=== PATIENT | female | born 1930 | race Caucasian/White ===

== ENCOUNTER 2016-08-17 14:47 | Inpatient (IN) | payer MEDICARE ==
--- NOTE | 2016-08-17 15:14 | EDM.PDOC ---
ED HPI GENERAL MEDICAL PROBLEM - General Time Seen by Provider: 08/17/16 15:09 Source of Information: Reports: Family History Limitations: Reports: Altered mental status - History of Present Illness INITIAL COMMENTS - FREE TEXT/NARRATIVE: c/o "gurgling" family came to visit and pt was leaning back in chair with coarse respirations, not talking, po 50% on arrival here but quickly came up to 95% after suction, had 30-50 of thick white secretions aspiration c/w aspiration, lungs were much more clear, some froth present dtr-in-law in room, pt from [place], nonambulatory, normally conversant still not speaking after suctioning - Related Data Allergies Allergy/AdvReac Type Severity Reaction Status Date / Time Penicillins Allergy Other Verified 04/26/16 06:27 Home Meds: Home Meds Acetaminophen [Tylenol] 650 mg PO BID 04/26/16 [History] Aspirin [Ecotrin] 325 mg PO DAILY 04/26/16 [History] Azelastine HCl 2 spray NASBOTH BID 04/26/16 [History] Calcium Carbonate/Vitamin D3 [Calcium 600 + Vit D 400 Softgl] 1 tab BID [History] Carbidopa/Levodopa [Sinemet 25-100 mg Tablet] 2 each PO QID 04/26/16 [History] Carboxymethylcellulose Sodium [Refresh Tears 0.5% Ophth Soln] 1 drop EYEBOTH QID 04/26/16 [History] Cholestyramine/Sucrose [Cholestyramine] 4 gm 1100 04/26/16 [History] Donepezil HCl [Aricept] 10 mg PO DAILY 04/26/16 [History] Furosemide [Lasix] 40 mg PO BID 04/26/16 [History] Gabapentin [Neurontin] 300 mg PO BID 04/26/16 [History] Insulin Lispro Prot/Lispro [HumaLOG Mix 75-25] 5 unit SQ BID 04/26/16 [History] Lisinopril [Prinivil] 5 mg PO DAILY 04/26/16 [History] Memantine HCl [Namenda Xr] 28 mg PO DAILY 04/26/16 [History] Mirtazapine [Remeron] 15 mg PO BEDTIME 04/26/16 [History] Multivitamin [Multi-Vitamin Daily] 1 tab DAILY 04/26/16 [History] Pantoprazole [Protonix] 40 mg PO DAILY 04/26/16 [History] Potassium Chloride 20 meq PO DAILY 04/26/16 [History] Raloxifene [Evista] 60 mg PO DAILY 04/26/16 [History] Ranitidine HCl [Zantac] 300 mg PO BEDTIME 04/26/16 [History] cefTRIAXone [Rocephin] 1 gm IM DAILY 04/26/16 [History] rOPINIRole HCl [Requip] 1 mg PO TID 04/26/16 [History] traMADol HCl [Tramadol HCl] 50 mg TID 04/26/16 [History] Past Medical History Cardiovascular History: Reports: Arrhythmia, Cardiomyopathy, Heart Failure, Hypertension Gastrointestinal History: Reports: Chronic constipation, GERD Genitourinary History: Reports: Urinary incontinence Musculoskeletal History: Reports: Arthritis Neurological History: Reports: Parkinson's Psychiatric History: Reports: Dementia Endocrine/Metabolic History: Reports: Diabetes, type II - Past Surgical History GI Surgical History: Reports: Hernia, abdominal, Hernia repair/other Social & Family History - Family History Family Medical History: Noncontributory - Tobacco Use Smoking Status *Q: Never Smoker Second Hand Smoke Exposure: No - Caffeine Use Caffeine Use: Reports: Coffee - Recreational Drug Use Recreational Drug Use: No ED ROS GENERAL - Review of Systems Review Of Systems: See Below Constitutional: Reports: no symptoms HEENT: Reports: No symptoms Respiratory: Reports: shortness of breath, sputum Cardiovascular: Reports: No symptoms Endocrine: Reports: no symptoms GI/Abdominal: Reports: No symptoms : Reports: no symptoms Musculoskeletal: Reports: no symptoms Skin: Reports: no symptoms Neurological: Reports: no symptoms Psychiatric: Reports: No symptoms Hematologic/Lymphatic: Reports: no symptoms Immunologic: Reports: no symptoms ED EXAM, GENERAL - Physical Exam Exam: See Below Exam Limited By: Altered mental status General Appearance: WD/WN, moderate distress, other Eye Exam: bilateral eye: other (conjugate) Ears: normal external exam Nose: normal inspection Throat/Mouth: Normal inspection, Normal lips, Normal gums, Normal oropharynx, No airway compromise Head: atraumatic, normocephalic Neck: normal inspection, supple, non-tender, full range of motion Respiratory/Chest: other (scattered rhonchi after suctioning, still tachypnea, weak, not speaking, slight diaphroesis, no retractions, using neck muscles) Cardiovascular: regular rate, rhythm, no edema, no gallop, no rub, other (2/6 [id number] at [facility], quiet precordium) GI/Abdominal: soft, non tender, other (obese) Back Exam: normal inspection, full range of motion Extremities: other (2+ edema to knees, trace edema to groins, nl to inc'd turgor UEs) Skin Exam: Warm, Dry, Intact Lymphatic: no adenopathy Course - Vital Signs Last Recorded V/S: Last Vital Signs Temp 36.3 C 08/17/16 14:50 Pulse 120 H 08/17/16 14:50 Resp 24 H 08/17/16 14:50 BP 138/67 08/17/16 14:50 Pulse Ox 70 L 08/17/16 14:50 - Orders/Labs/Meds Orders: Active Orders 24 hr Category Date Time Status Leal Catheter Insertion [Insert Urinary Catheter] [OM. Care 08/17/16 15:30 Ordered PC] Q24H Urinary Catheter Assessment [RC] QSHIFT Care 08/17/16 15:18 Active Chest 1V Frontal [CR] Stat Exams 08/17/16 15:03 Taken CULTURE BLOOD [BC] Urgent Lab 08/17/16 15:10 Received CULTURE BLOOD [BC] Urgent Lab 08/17/16 15:20 Received Clindamycin Phosphate [Cleocin] 600 mg Med 08/17/16 16:00 Active Sodium Chloride 0.9% [Normal Saline] 50 ml IV Q8H Blood Culture x2 Reflex Set [OM.PC] Urgent Oth 08/17/16 15:08 Ordered EKG 12 Lead [EK] Routine Ther 08/17/16 15:07 Ordered Medication Orders Clindamycin Phosphate 600 mg/ (Sodium Chloride) 54 mls @ 150 mls/hr IV Q8H LIA Labs: Laboratory Tests 08/17/16 08/17/16 08/17/16 Range/Units 15:10 15:10 15:20 WBC 11.1 (4.5-12.0) X10-3/uL RBC 4.16 (3.23-5.20) x10(6)uL Hgb 13.0 (11.5-15.5) g/dL Hct 40.4 (30.0-51.3) % MCV 97.1 H (80-96) fL MCH 31.1 (27.7-33.6) pg MCHC 32.1 L (32.2-35.4) g/dL RDW 13.3 (11.5-15.5) % Plt Count 187 (125-369) X10(3)uL MPV 9.2 (7.4-10.4) fL Add Manual Diff Yes Neutrophils % (Manual) 85 H (46-82) % Lymphocytes % (Manual) 10 L (13-37) % Monocytes % (Manual) 5 (4-12) % Sodium 137 (135-145) mmol/L Potassium 4.8 (3.5-5.3) mmol/L Chloride 101 (100-110) mmol/L Carbon Dioxide 29 (23-29) mmol/L BUN 20 (8-23) mg/dL Creatinine 1.0 (0.6-1.3) mg/dL Est Cr Clr Drug Dosing TNP Estimated GFR (MDRD) 52 L (>60) BUN/Creatinine Ratio 20.0 (9-20) Glucose 237 H D (80-116) mg/dL Calcium 9.0 (8.6-10.2) mg/dL Total Bilirubin 0.4 (0.1-1.3) mg/dL AST 21 D (5-27) IU/L ALT 6 L D (14-26) IU/L Alkaline Phosphatase 73 (56-112) IU/L Troponin I 0.02 (0.02-0.06) NG/ML C-Reactive Protein < 0.5 (0.0-1.0) mg/dL B-Natriuretic Peptide (0-100) pg/mL Total Protein 7.6 (6.0-8.0) g/dL Albumin 3.6 (3.2-4.6) g/dL Globulin 4.0 g/dL Albumin/Globulin Ratio 0.9 03/05/17 Range/Units 15:20 WBC (4.5-12.0) X10-3/uL RBC (3.23-5.20) x10(6)uL Hgb (11.5-15.5) g/dL Hct (30.0-51.3) % MCV (80-96) fL MCH (27.7-33.6) pg MCHC (32.2-35.4) g/dL RDW (11.5-15.5) % Plt Count (125-369) X10(3)uL MPV (7.4-10.4) fL Add Manual Diff Neutrophils % (Manual) (46-82) % Lymphocytes % (Manual) (13-37) % Monocytes % (Manual) (4-12) % Sodium (135-145) mmol/L Potassium (3.5-5.3) mmol/L Chloride (100-110) mmol/L Carbon Dioxide (23-29) mmol/L BUN (8-23) mg/dL Creatinine (0.6-1.3) mg/dL Est Cr Clr Drug Dosing Estimated GFR (MDRD) (>60) BUN/Creatinine Ratio (9-20) Glucose (80-116) mg/dL Calcium (8.6-10.2) mg/dL Total Bilirubin (0.1-1.3) mg/dL AST (5-27) IU/L ALT (14-26) IU/L Alkaline Phosphatase (56-112) IU/L Troponin I (0.02-0.06) NG/ML C-Reactive Protein (0.0-1.0) mg/dL B-Natriuretic Peptide 362 H (0-100) pg/mL Total Protein (6.0-8.0) g/dL Albumin (3.2-4.6) g/dL Globulin g/dL Albumin/Globulin Ratio Meds: Medications Generic Name Dose Route Start Last Admin Trade Name Freq PRN Reason Stop Dose Admin Clindamycin Phosphate 600 mg/ 54 mls @ 150 mls/hr 08/17/16 16:00 Sodium Chloride IV Q8H LIA Discontinued Medications Generic Name Dose Route Start Last Admin Trade Name Freq PRN Reason Stop Dose Admin Furosemide 40 mg 08/17/16 15:18 Lasix IVPUSH 08/17/16 15:19 NOW ONE - Re-Assessments/Exams Free Text/Narrative Re-Assessment/Exam: 08/17/16 17:08 d/w Dr Hodgson who accepted pt in admission Departure - Departure Time of Disposition: 17:08 Disposition: DC/Tfer to Acute Hospital 02 Condition: fair Clinical Impression: Aspiration pneumonia - My Orders Last 24 Hours: My Active Orders 08/17/16 15:03 Chest 1V Frontal [CR] Stat 08/17/16 15:07 EKG 12 Lead [EK] Routine 08/17/16 15:08 Blood Culture x2 Reflex Set [OM.PC] Urgent 08/17/16 15:10 CULTURE BLOOD [BC] Urgent 08/17/16 15:18 Urinary Catheter Assessment [RC] QSHIFT 08/17/16 15:20 CULTURE BLOOD [BC] Urgent 08/17/16 15:30 Leal Catheter Insertion [Insert Urinary Catheter] [OM.PC] Q24H 08/17/16 16:00 Clindamycin Phosphate [Cleocin] 600 mg Sodium Chloride 0.9% [Normal Saline] 50 ml IV Q8H - Assessment/Plan Last 24 Hours: My Active Orders 08/17/16 15:03 Chest 1V Frontal [CR] Stat 08/17/16 15:07 EKG 12 Lead [EK] Routine 08/17/16 15:08 Blood Culture x2 Reflex Set [OM.PC] Urgent 08/17/16 15:10 CULTURE BLOOD [BC] Urgent 08/17/16 15:18 Urinary Catheter Assessment [RC] QSHIFT 08/17/16 15:20 CULTURE BLOOD [BC] Urgent 08/17/16 15:30 Leal Catheter Insertion [Insert Urinary Catheter] [OM.PC] Q24H 08/17/16 16:00 Clindamycin Phosphate [Cleocin] 600 mg Sodium Chloride 0.9% [Normal Saline] 50 ml IV Q8H
[2016-08-17] MEDS ORDERED: Furosemide 40 MG/4 ML VIAL IVPUSH ONE (15:18)
[2016-08-17] MEDS ORDERED: Albuterol/Ipratropium 3.0-0.5 MG/3 ML Neb Soln NEB PRN (17:32)
[2016-08-17] MEDS ORDERED: Sodium Chloride 0.9% 10 ML Syringe FLUSH PRN (17:32)
[2016-08-17] MEDS ORDERED: Furosemide 40 MG/4 ML VIAL ONE (17:33)
[2016-08-17] MEDS: NS + KCl 20mEq/L 1,000 ML IV SCH (18:52)
[2016-08-17] MEDS ORDERED: cefTRIAXone 1 GM in Sodium Chloride 0.9% 50 ML IV SCH (19:00)
[2016-08-17] MEDS ORDERED: Enoxaparin 40 MG/0.4 ML Syringe SUBCUT SCH (19:30)
[2016-08-17] MEDS: metroNIDAZOLE/Normal Saline 500 MG in Premix Bag 1 BAG IV SCH (19:36)
[2016-08-17] MEDS ORDERED: traMADol 50 MG Tab PO SCH (21:00)
[2016-08-17] MEDS ORDERED: Acetaminophen 325 MG Tab PO SCH (21:00)
[2016-08-17] MEDS ORDERED: rOPINIRole 1 MG Tab PO SCH (21:00)
[2016-08-17] MEDS: Mirtazapine 15 MG Tab PO SCH (21:06)
[2016-08-17] MEDS: Gabapentin 300 MG Cap PO SCH (21:06)
[2016-08-17] MEDS: Albuterol/Ipratropium 3.0-0.5 MG/3 ML Neb Soln NEB SCH (21:07)
[2016-08-17] MEDS: Carbidopa/Levodopa 25-100 MG Tab PO SCH (21:35)
[2016-08-17] MEDS: Carboxymethylcellulose Sodium 0.5% Ophth Soln 15 ML Bottle EYEBOTH SCH (21:47)
--- NOTE | 2016-08-18 00:18 | HP ---
ADMISSION DATE: 08/17/2016 CHIEF COMPLAINT: Increasing shortness of breath with unresponsiveness and recent aspiration. HISTORY OF PRESENT ILLNESS: This patient is an 86-year-old, long-term resident of [facility] with a previous history of Parkinson's disease and progressive dementia, type 2 diabetes mellitus, arteriosclerotic heart disease with CHF, and peripheral neuropathy, who was admitted after being seen in the emergency room with the above chief complaint. According to the residential, her dementia has been slowly progressing as is her Parkinson disease. She is becoming more and more rigid, is no longer able to transfer without help and is no longer able to walk. According to her family, she was quite good this morning. She was awake, alert, visiting some with them. When they returned at noon after she had eaten, they found her lying back with her head tilted back and gurgling respirations. She was unresponsive. She was brought to the emergency room where she was evaluated. She initially was quite hypoxic but they suctioned a fair amount of foamy blood tinged particulate matter out of her lungs and trachea and with that, she began coming around, however, she continued to have gurgling respirations and elevated white count was identified. Chest x- ray showed no acute infiltrates, but this just recently happened. Blood cultures were obtained and she was started on IV clindamycin. They felt that hospitalization for short-term would be prudent. The patient at this time denies any pain and is able to answer yes and no questions. She denies any significant shortness of breath but has a loose congested cough. She has had no nausea or vomiting. Denies any recent melena, hematochezia, hematemesis, hemoptysis, or hematuria. 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 CURRENT MEDICATIONS: Extensive and include Sinemet 20/100 two tablets q.i.d., ropinirole 1 mg t.i.d., Aricept 10 mg daily, Namenda in the extended release form 28 mg daily, Protonix 40 mg daily, lisinopril 5 mg daily, furosemide 40 mg b.i.d., potassium chloride 20 mEq daily, Evista 60 mg daily, Astelin nasal spray one whiff in each nostril b.i.d., calcium carbonate with vitamin D 600/400 one tablet daily. She takes cholestyramine 4 g daily, Humalog 75/25, 5 units subcu b.i.d., multivitamin daily. She is also on tramadol 50 mg t.i.d., gabapentin 300 mg b.i.d., aspirin 325 mg daily, and acetaminophen 650 mg p.o. b.i.d. She uses Refresh eye drops in both eyes q.i.d. ALLERGIES: Penicillins. HABITS: She does not smoke nor use alcohol. PAST MEDICAL HISTORY: Pertinent that she has had long-standing Parkinson disease, type 2 diabetes mellitus, and the progressive dementia. She has known osteoporosis and osteoarthritis. She has had a previous hysterectomy, tonsillectomy, and previous ventriculoperitoneal shunt for hydrocephalus a number of years ago. FAMILY HISTORY: Unremarkable at this age. REVIEW OF SYSTEMS: Other than that mentioned above, has been unremarkable. PHYSICAL EXAMINATION: VITAL SIGNS: At this time showed her to be afebrile. Blood pressure 138/67, pulse is 120 and regular, respirations are 24 and somewhat labored, O2 saturation initially was 70% but after being suctioned now, she is at 92% on 2 L. Weight was 167.5 pounds. HEENT: TMs are clear. The pupils are round and reactive well to light and accommodation. Extraocular movements were intact. Intraocular lenses were noted bilaterally. The pharynx and palate were unremarkable except for dry mucous membranes. Dentition is in fair repair. NECK: Supple. There was no jugular venous distention. Thyroid was not enlarged. CHEST: Revealed a few crackles at both bases posteriorly but it was difficult for her to take deep breaths. CARDIOVASCULAR: Revealed a regular rhythm without murmur, rub, or gallop. The above-mentioned tachycardia was noted. ABDOMEN: Soft, obese, and nontender, without specific point tenderness. There are primary soft obese and nontender without rebound or rigidity. Bowel sounds normal. No bruits were appreciated. PELVIC: Not done. EXTREMITIES: Showed no clubbing, no edema. NEUROLOGIC: The patient's facies are quite flat. She has significant rigidity throughout both in the upper and lower extremities bilaterally. There is a mild pill-rolling tremor in the right upper extremity while laying in bed. She was able to answer yes and no questions, but her speech was slow. She did not tell me where she was. She could not tell me the day, date, or year. LABORATORY DATA: CBC revealed hemoglobin of 13.0, hematocrit of 40.4, white count of 11,100, with a left shift. Platelets were 187,000. Sodium 137, potassium of 4.8. CO2 was 29, creatinine 1.0, BUN of 20. Random glucose 237. Liver functions were unremarkable. Troponin was 0.02. C-reactive protein was less than 0.5. BNP was 362. Total protein and albumin were normal. Chest x- ray showed some mild increase in pulmonary vascular congestion and mild cardiomegaly. No active infiltrates were identified. IMPRESSION: 1. Recent episode of aspiration and resultant hypoxia, rule out pneumonitis. 2. Progressive dementia with worsening Parkinson disease. 3. Type 2 diabetes mellitus. 4. Peripheral neuropathy. 5. History of depression. 6. History gastroesophageal reflux. PLAN: The patient will be admitted. Cultures have already been obtained. She has been started on Cleocin 600 mg IV q.8 hours and we will continue her other medicines to keep her upright and will keep her n.p.o. For now, hydrate with IV fluids and proceed from there. /[id number] /TIML
[2016-08-18] MEDS: metroNIDAZOLE/Normal Saline 500 MG in Premix Bag 1 BAG IV SCH ×4 (02:38→18:16)
[2016-08-18] MEDS: NS + KCl 20mEq/L 1,000 ML IV SCH ×2 (05:48→20:31)
[2016-08-18] MEDS: Carbidopa/Levodopa 25-100 MG Tab PO SCH ×4 (07:48→19:54)
[2016-08-18] MEDS: Albuterol/Ipratropium 3.0-0.5 MG/3 ML Neb Soln NEB SCH ×4 (08:09→20:01)
[2016-08-18] MEDS: Pantoprazole 40 MG Tab.CR PO SCH (08:25)
[2016-08-18] MEDS ORDERED: Memantine HCl 28 MG CAP.ER PO SCH (09:00)
[2016-08-18] MEDS: rOPINIRole 1 MG Tab PO SCH ×3 (09:49→19:54)
[2016-08-18] MEDS: Donepezil 10 MG Tab PO SCH (10:04)
[2016-08-18] MEDS: Aspirin 325 MG Tab.EC PO SCH (10:04)
[2016-08-18] MEDS: Carboxymethylcellulose Sodium 0.5% Ophth Soln 15 ML Bottle EYEBOTH SCH ×4 (10:05→20:01)
[2016-08-18] MEDS: Gabapentin 300 MG Cap PO SCH ×2 (10:05→20:02)
[2016-08-18] MEDS: Lisinopril 5 MG Tab PO SCH (10:05)
[2016-08-18] MEDS: Memantine 10 MG Tab PO SCH ×2 (10:09→20:02)
[2016-08-18] MEDS: traMADol 50 MG Tab PO SCH ×2 (10:13→17:16)
--- NOTE | 2016-08-18 11:34 | CR ---
INDICATION: Possible aspiration. CHEST: Portable AP upright view of the chest 08/17/2016 was compared with 04/26 and 10/26/2015, revealing evidence of exogenous obesity as previously. Evidence of ASHD is noted. The heart appears slightly enlarged. The aorta is calcified in the arch area and slightly tortuous. Lungs appear to be hyperaerated. The left diaphragm leaf is not visualized, making it difficult to exclude pleuroparenchymal changes - pneumonia and pleuritis in that area. No definite evidence of CHF is seen on the present study - findings do not strongly suggest aspiration pneumonia. IMPRESSION: 1. Cannot exclude pneumonia and pleuritis at the left lung base. 2. ASHD with mild cardiomegaly. No evidence of CHF. 3. Possible COPD. 4. Exogenous obesity. 5. 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 MTDD
--- NOTE | 2016-08-18 12:29 | PN ---
DATE SEEN: 08/18/2016 SUBJECTIVE: This is an 86-year-old female with a history of progressive Parkinson's disease and dementia, is seen today for followup. She had an aspiration episode yesterday and was unresponsive. She was admitted for aggressive IV antibiotic therapy and hydration following the episode that resulted in significant hypoxemia. She says, today, she has no pain, denies any shortness of breath, has had some cough, but does not appear to be excessively congested. She is hungry this morning and has no other complaints. OBJECTIVE: GENERAL: She appears to be awake with her eyes open. Her speech is quite slow. Facies are very flat. VITAL SIGNS: She remains afebrile, however. Pulse was 92 and regular, blood pressure 111/60. O2 saturation on room air was 91% to 96%. GENERAL: A well-developed and well-nourished female in no acute distress. Again, the facies are quite flat. HEENT: Mucous membranes at this time are pink and moist. CHEST: Revealed few crackles at the right base, but these cleared easily with cough. No tachypnea. No retractions. CARDIOVASCULAR: Revealed a normal S1 and S2 with a regular rhythm. ABDOMEN: Obese, but otherwise negative. No tenderness, organomegaly, or masses. EXTREMITIES: Exam was negative, except for significant rigidity throughout. She requires a Ana Lilia lift for getting to and from the bathroom or commode, as she is unable to stand. IMPRESSION: Recent aspiration episode in an 86-year-old female with end-stage Parkinson disease, dementia, type 2 diabetes mellitus, gastroesophageal reflux, and peripheral neuropathy. PLAN: We will continue her IV antibiotics. Advance her diet. The fdc stated that she had a swallowing evaluation and was placed on a mechanical soft ADA diet with regular fluids. No supplements were recommended. This will be initiated. We will decrease her IV rate and continue the same. The patient's overall prognosis is poor because of her other concomitant diseases, but I am hoping that with this aggressive treatment, we will be able to stave off an episode of aggressive pneumonia and respiratory failure. /[id number] WM/MODL
[2016-08-18] MEDS: Acetaminophen 325 MG Tab PO SCH ×2 (12:58→19:55)
[2016-08-18] MEDS: Mirtazapine 15 MG Tab PO SCH (20:02)
[2016-08-18] MEDS: Enoxaparin 40 MG/0.4 ML Syringe SUBCUT SCH (20:02)
[2016-08-18] MEDS ORDERED: cefTRIAXone 1 GM in Sodium Chloride 0.9% 50 ML IV SCH (21:00)
[2016-08-19] MEDS: traMADol 50 MG Tab PO SCH ×3 (01:15→16:38)
[2016-08-19] MEDS: metroNIDAZOLE/Normal Saline 500 MG in Premix Bag 1 BAG IV SCH ×2 (01:30→11:11)
[2016-08-19] MEDS: Carbidopa/Levodopa 25-100 MG Tab PO SCH ×4 (06:02→20:26)
[2016-08-19] MEDS: Pantoprazole 40 MG Tab.CR PO SCH (06:45)
[2016-08-19] MEDS: Albuterol/Ipratropium 3.0-0.5 MG/3 ML Neb Soln NEB SCH ×4 (07:36→20:31)
[2016-08-19] MEDS: NS + KCl 20mEq/L 1,000 ML IV SCH ×2 (08:32→12:24)
[2016-08-19] MEDS: rOPINIRole 1 MG Tab PO SCH ×3 (08:43→20:25)
[2016-08-19] MEDS: Donepezil 10 MG Tab PO SCH (08:48)
[2016-08-19] MEDS: Gabapentin 300 MG Cap PO SCH ×2 (08:48→20:35)
[2016-08-19] MEDS: Memantine 10 MG Tab PO SCH ×2 (08:48→20:33)
[2016-08-19] MEDS: Aspirin 325 MG Tab.EC PO SCH (08:48)
[2016-08-19] MEDS: Lisinopril 5 MG Tab PO SCH (08:48)
[2016-08-19] MEDS: Carboxymethylcellulose Sodium 0.5% Ophth Soln 15 ML Bottle EYEBOTH SCH ×4 (08:51→20:36)
[2016-08-19] MEDS: Acetaminophen 325 MG Tab PO SCH ×2 (12:25→20:29)
--- NOTE | 2016-08-19 13:24 | PN ---
DATE SEEN: 08/19/2016 SUBJECTIVE: Yanira is seen today for followup of her aspiration pneumonia. She has remained afebrile and has been actually doing quite well. There has been no evidence of choking, and she has no cough and has remained afebrile. She has been eating fairly well with the help of the nurses, has no other specific complaints or concerns. Denies pain at this time. OBJECTIVE: GENERAL: She appears to be quite comfortable. Her speech is slow, and she is mildly disoriented, but is able to answer yes and no questions. VITAL SIGNS: Blood pressure 142/78, pulse was up a bit at 107 initially this morning, but when I checked it while making rounds, it is down to 94 and regular, respirations are 18, O2 saturation on room air is 92% to 91%. HEENT: Unremarkable. Mucous membranes are pink and moist. NECK: There is no jugular venous distention. CHEST: Completely clear. CARDIOVASCULAR: Reveals a normal S1, S2 without occasionally irregular rhythm. No gallop or rub is noted. ABDOMEN: Soft, obese, and nontender without organomegaly or masses. EXTREMITIES: Without clubbing or edema. Significant rigidity is noted throughout. The facies are still quite flat. Otherwise, no other abnormalities are identified. ASSESSMENT: Recent aspiration with severe Parkinson disease and resultant dementia, previous history gastroesophageal reflux, and peripheral neuropathy. PLAN: We are going to discontinue the IV antibiotics, switch over to orals, and watch her. If in fact she does well, she can go back to the nursing. Follow from there. /[id number] /TORRES
[2016-08-19] MEDS: Clindamycin HCl 150 MG Cap PO SCH (19:25)
[2016-08-19] MEDS: Enoxaparin 40 MG/0.4 ML Syringe SUBCUT SCH (20:31)
[2016-08-19] MEDS: Mirtazapine 15 MG Tab PO SCH (20:37)
[2016-08-20] MEDS: Clindamycin HCl 150 MG Cap PO SCH (01:59)
[2016-08-20] MEDS: traMADol 50 MG Tab PO SCH ×2 (01:59→08:19)
[2016-08-20] MEDS: Carbidopa/Levodopa 25-100 MG Tab PO SCH (06:04)
[2016-08-20] MEDS: Pantoprazole 40 MG Tab.CR PO SCH (06:41)
[2016-08-20] MEDS: Albuterol/Ipratropium 3.0-0.5 MG/3 ML Neb Soln NEB SCH (07:17)
[2016-08-20] MEDS: rOPINIRole 1 MG Tab PO SCH (08:19)
[2016-08-20] MEDS: Lisinopril 5 MG Tab PO SCH (08:19)
[2016-08-20] MEDS: Memantine 10 MG Tab PO SCH (08:19)
[2016-08-20] MEDS: Donepezil 10 MG Tab PO SCH (08:19)
[2016-08-20] MEDS: Aspirin 325 MG Tab.EC PO SCH (08:19)
[2016-08-20] MEDS: Gabapentin 300 MG Cap PO SCH (08:19)
[2016-08-20] MEDS: Carboxymethylcellulose Sodium 0.5% Ophth Soln 15 ML Bottle EYEBOTH SCH (08:24)
[2016-08-20 09:08] VITALS: BP 136/52
--- NOTE | 2016-08-20 11:54 | PN ---
DATE SEEN: 08/20/2016 SUBJECTIVE: Yanira is seen today for followup of her aspiration episode and possible pneumonia, Parkinson disease, type 2 diabetes mellitus with peripheral neuropathy, depression, and gastroesophageal reflux. Actually, she is doing very well. She has no complaints this morning and talkative, answers our questions, although quite confused. She denies pain at this time. Her appetite has been quite good. She has had no other complaints or concerns. OBJECTIVE: GENERAL: She remains afebrile. VITAL SIGNS: Blood pressure 136/52, pulse is 95 and regular, respirations were unlabored at 20 per minute, and O2 saturation on room air ranges between 92% and 97%. HEENT: Otherwise unremarkable except for her flat facies. CHEST: Clear. No wheezes, rales, rhonchi, or retractions were noted. CARDIOVASCULAR: Revealed a normal S1 and S2 with a regular rhythm. There was no gallop or rub. ABDOMEN: Soft, obese, but nontender without organomegaly or masses. Bowel sounds are present. No bruits were noted. EXTREMITIES: Quite rigid, but otherwise no other abnormalities were noted. She has no clubbing. No edema. Peripheral pulses are strong and equal bilaterally. IMPRESSION: 1. Recent aspiration episode with resultant hypoxemia. It appears as though pneumonia has been everted. 2. Parkinson disease with progressive dementia and significant bradykinesia. 3. Type 2 diabetes mellitus, complicated by peripheral neuropathy. 4. History of depression. 5. History of gastroesophageal reflux. PLAN: I am going to discontinue her Leal and I will switch her over to oral Cleocin. As she is now stable and doing well, we will discharge her back to the detention with 3 more days of antibiotics and follow from there. /[id number] /MODL
--- NOTE | 2016-08-21 05:02 | DISCH ---
DISCHARGE DATE: 08/20/2016 REASON FOR ADMISSION: This 86-year-old, female, long-term resident of [facility] with a previous history of Parkinson disease and resultant dementia, type 2 diabetes mellitus, atherosclerotic heart disease, congestive heart failure, hypertension, and peripheral neuropathy along with gastroesophageal reflux, was admitted after being brought to the emergency room. Apparently, she was found unresponsive at the correction and quite hypoxic. While in the emergency room, oropharyngeal and tracheal suctioning was done with a large amount of particulate material and they felt that she probably had aspirated. With that, her hypoxia improved. She was started on IV clindamycin and because of her history, they elected to admit her for presumed aspiration pneumonia. Please see the copy of the H and P for further details. HOSPITAL COURSE: Patient was admitted. Cultures were obtained. Chest x-ray showed no acute infiltrates, but this was immediately after the episode. Her initial white count was 11,100, hemoglobin was 13.0, hematocrit of 40.5, she had a left shift. Electrolytes were normal. Creatinine 1.0, BUN of 20. Liver functions were unremarkable. BNP was minimally elevated at 362, C-reactive protein was less than 0.05. Urinalysis did show 20-30 WBCs with moderate amount of bacteria. The patient had already been started on her Cleocin. She was admitted, head of bed was elevated and she was monitored closely for any evidence of hypoxemia, hydrated with intravenous fluids and continued on ceftriaxone 1 g IV every 24 hours and metronidazole 500 mg IV q.8h hours. With that treatment, she actually had no further respiratory distress. Her lungs remained clear. Her followup white count was 11,800 with a left shift, but then it dropped to 9,600, and her hemoglobin remained stable at 11.6. Urine culture was done, but showed no growth presumably from the antibiotics that are already been started. She remained awake and alert, but confused. She has significant Parkinson symptoms and requiring a Ana Lilia lift and did not bear weight at all, but actually was eating well drinking well and showed no evidence of respiratory distress. We discontinued the antibiotics and switched over to oral clindamycin 300 mg q.8 hours and she continues to do well. She slept well, eating well, drinking well, and no cough or other symptoms have been noted. She initially had a Leal catheter placed, but that has been discontinued and she has been voiding. No other symptoms or concerns and will be discharged back to the correction. Keep her upright at all times when eating or drinking and will continue the clindamycin for another three days. If there are problems or other difficulties arise, let us know. FINAL DIAGNOSES: 1. Recent aspiration episode with significant hypoxemia, but no evidence of pneumonia. 2. Parkinson disease with progressive dementia. 3. Type 2 diabetes mellitus. 4. Gastroesophageal reflux. 5. Arteriosclerotic heart disease with previous history of congestive heart failure. DISCHARGE MEDICATIONS: 1. Sinemet 25/100 two tablets at 0700 hours, 1100 hours, 1600 hours and 2000 hours. 2. Aspirin 325 mg daily. 3. Clindamycin 300 mg q.8 hours for the next three days. 4. Aricept 10 mg daily. 5. Namenda extended release 28 mg daily. 6. Propranolol 40 mg p.o. daily. 7. Mirtazapine 15 mg at bedtime. 8. Lisinopril 5 mg at bedtime. 9. Ropinirole 1 mg t.i.d. 10.Tramadol 50 mg t.i.d. 11.Gabapentin 300 mg b.i.d. 12.She uses Refresh eye drops in both eyes q.i.d. 13.Tylenol 650 mg b.i.d. and p.r.n. pain. DISCHARGE DIET: Consisting carbohydrate 2000 calorie. DISCHARGE DISPOSITION: She will be discharged back to the correction. Again, nothing by mouth unless she is sitting upright to give her time to swallow. She will be followed there. /[id number] /TORRES
== END 2016-08-20 10:28 | DRG 206 ==
LOC: FB.ED 14:47 → FB.MS 17:15
PROVIDERS: ADMIT Family Medicine; ATTEND Family Medicine
DX: T17.890A Other foreign object in other parts of respiratory tract causing asphyxiation, initial encounter (principal); T17.490A Other foreign object in trachea causing asphyxiation, initial encounter; I42.9 Cardiomyopathy, unspecified; E11.42 Type 2 diabetes mellitus with diabetic polyneuropathy; I11.0 Hypertensive heart disease with heart failure; I50.9 Heart failure, unspecified; Z66 Do not resuscitate; G20 Parkinson's disease; F02.80 Dementia in other diseases classified elsewhere, unspecified severity, without behavioral disturbance, psychotic disturbance, mood disturbance, and anxiety; Z79.4 Long term (current) use of insulin; Z79.82 Long term (current) use of aspirin; Z88.0 Allergy status to penicillin; K21.9 Gastro-esophageal reflux disease without esophagitis; Z86.73 Personal history of transient ischemic attack (TIA), and cerebral infarction without residual deficits; I25.10 Atherosclerotic heart disease of native coronary artery without angina pectoris; R09.02 Hypoxemia
CPT/HCPCS: 36415; 51702; 71010; 80048; 80053; 81001; 82962; 83880; 84484; 85025; 86140; 87040; 87086; 93005; 94640-76; 96374; 99285; A9270-GY; J0696; J1650; J1940; J3480; J7050; J7620; S0077